=== PATIENT | male | born 1975 | race African-American/Black ===

== ENCOUNTER 2017-03-01 12:59 | Emergency (ER) | payer MEDICAID, OTHER ==
[~2017-03-01] VITALS: Ht 177.8 cm; Wt 91.0 kg
[2017-03-01] MEDS ORDERED: OXYCODONE HCL/ACETAMINOPHEN 5/325MG TABLET PO ONE (14:15)
[2017-03-01 15:40] VITALS: BP 130/70
== END 2017-03-01 17:26 | disposition home or self-care (01) ==
LOC: ER 12:59
DX: S06.9X9A Unspecified intracranial injury with loss of consciousness of unspecified duration, initial encounter (principal); S01.112A Laceration without foreign body of left eyelid and periocular area, initial encounter; Z88.2 Allergy status to sulfonamides; Y00.XXXA Assault by blunt object, initial encounter; Y93.89 Activity, other specified; Y92.018 Other place in single-family (private) house as the place of occurrence of the external cause
CPT/HCPCS: 70450; 70486; 99284; X7700; Z7610